=== PATIENT | female | born 1995 | race Caucasian/White ===

== ENCOUNTER 2018-07-24 19:54 | Emergency (ER) | payer OTHER | END 2018-07-25 02:20 | disposition home or self-care (01) | LOC: FTE 19:54 | DX: R05 Cough (principal) | CPT/HCPCS: 99283; Z7502 ==

== ENCOUNTER 2018-10-18 15:14 | Emergency (ER) | payer OTHER | END 2018-10-18 17:34 | disposition home or self-care (01) | LOC: FTE 17:34 | DX: M54.6 Pain in thoracic spine (principal) | CPT/HCPCS: 72072; 73562; 99284-25 ==